=== PATIENT | female | born 1965 | race Caucasian/White ===

== ENCOUNTER 2022-12-27 15:39 | Emergency (ER) | payer OTHER, SELFPAY ==
[2022-12-27 15:47] VITALS: BP 150/82; PULSE 74; RESP 16; TEMP 37.3; O2SAT 100
--- NOTE | 2022-12-27 15:51 | ED.SKABFB ---
HPI - Skin/Abscess/Foreign Bdy General Chief complaint: Skin/Abscess/Foreign Body Stated complaint: Rash Time Seen by Provider: 12/27/22 15:50 Source: patient and RN notes reviewed Mode of arrival: ambulatory Limitations: no limitations History of Present Illness HPI narrative: 57-year-old female presents with concern for wheezing rash on her bilateral forearms. Reports she got the rash after she was pulling weeds. Reports she has been using discharge on the rash. She denies swollen lips, swollen tongue, trouble breathing. MD complaint: rash Related Data Home Medications Medication Instructions Recorded Confirmed aspirin 81 mg chewable tablet 81 mg PO DAILY 12/27/22 12/27/22 bisoprolol fumarate 5 mg tablet mg 12/27/22 ramipril 2.5 mg capsule mg 12/27/22 venlafaxine 75 mg capsule,extended mg PO 12/27/22 release 24 hr Allergies Allergy/AdvReac Type Severity Reaction Status Date / Time Cashew Allergy Unknown ORAL Uncoded 12/27/22 15:46 SWELLING Review of Systems Review of Systems: CONSTITUTIONAL: Denies malaise, chills, sweats, or fever. EYES: Denies redness, or discharge. ENT: Denies rhinorrhea, congestion, swollen lips, swollen tongue CARDIOVASCULAR: Denies chest pain, palpitations, or edema. RESPIRATORY: Denies cough or dyspnea. GASTROINTESTINAL: Denies abdominal pain, nausea, vomiting SKIN: Reports weeping itchy rash on bilateral forearms MUSCULOSKELETAL: Denies joint pain or myalgia. NEUROLOGIC: Denies headache. All systems reviewed & are unremarkable except as noted in HPI and below PMFSH Family History Family History (Updated 08/04/14 @ 12:58 by DOCTOR UNKNOWN) Other Cerebrovascular accident Social History Social History Alcohol intake: current Comments At time of signature, agree with nursing past medical, surgical, social and family history. There is no relevant family history pertinent to the presenting complaint Exam Narrative: GENERAL: Well-appearing, well-nourished, and in no acute distress. HEAD: Normocephalic, atraumatic. EYES: PERRLA, conjunctivae clear, and EOMI. ENT: Mucous membranes moist. Oropharynx without edema, erythema or lesions. NECK: Supple. No lymphadenopathy CHEST: Clear to auscultation. No respiratory distress. HEART: Regular rate and rhythm. SKIN: Warm, dry. Patches of erythematous papules and vesicles, some weeping noted to bilateral forearms NEURO: Alert and oriented x3. PSYCH: Normal mood and affect Course Course Emergency Course: Patient is aware of diagnosis, understands and agrees to treatment plan. Anticipatory guidance given. Patient agrees to follow-up as directed and is aware of reasons to seek care at the emergency department. Portions of this record may have been created with voice recognition software Level of Care: Express Care Visit Vital Signs Vital signs: Reviewed. MDM - Skin/Abscess/Foreign Bdy MDM Narrative Medical decision making narrative: Does not appear at this time to be erythema multiforme, bullous, SJS, TEN; no evidence at this time to suggest RMSF, endocarditis or Lyme disease; patient looks well, nontoxic and is tolerating oral intake; no neurologic signs or symptoms; no headache, photophobia or neck pain; afebrile; appropriate for initial outpatient treatment; discussed the importance of follow-up, patient agrees; question, viral exanthema, contact dermatitis, allergic dermatitis, eczema, urticaria, scabies. No soft palate or uvula edema, no tongue, lip edema or other mucosal involvement, no respiratory compromise, no stridor, no wheezing, no wheezing, no history of syncope, no hypotension, no nausea, vomiting, or diarrhea. Instructed patient to go to nearest ER immediately for any worsening symptoms including but not limited to: fever, spreading rash, pain, sore throat, headache, dizziness, chest pain, trouble breathing, or any symptoms concerning to the patient. Critical Care Time Critical Care Time
== END 2022-12-27 16:05 | disposition home or self-care (01) ==
PROVIDERS: Emergency Provider Nurse Practitioner; PCP Internal Medicine
DX: L25.9 Unspecified contact dermatitis, unspecified cause (principal); M19.90 Unspecified osteoarthritis, unspecified site; I25.2 Old myocardial infarction; Z79.82 Long term (current) use of aspirin
CPT/HCPCS: 99213; G0463

== ENCOUNTER 2023-06-16 18:46 | Emergency (ER) | payer OTHER, SELFPAY ==
--- NOTE | ~2023-06-16 | XR_ITS ---
Right ankle Technique: AP, oblique, and lateral views were obtained. Clinical History: Trauma Findings: There is an acute, oblique fracture of the medial malleolus at its base, minimally displace d.. Ankle mortise and other visualized joint spaces are preserved. Medial soft tissue swelling noted. Impression: Acute medial malleolus fracture, as detailed above. Medial soft tissue swelling. Reviewed, dictated and finalized at location . INTERN Impression: Acute medial malleolus fracture, as detailed above. Medial soft tissue swelling.
--- NOTE | ~2023-06-16 | XR_ITS ---
Right Knee Technique: AP, lateral, and sunrise views were obtained. Clinical History: Pain Findings: No fracture or dislocation is seen. Osseous alignment is anatomic. Joint spaces are preserv ed without degenerative or erosive change. There is subcutaneous soft tissue edema medially. No joint effusion is seen. Impression: No fracture or dislocation seen. Medial subcutaneous soft tissue edema. Reviewed, dictated and finalized at location . ICAL DOCUMENTATION MANAGER Impression: No fracture or dislocation seen. Medial subcutaneous soft tissue edema.
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
[2023-06-16 18:57] VITALS: BP 98/71; PULSE 126; RESP 16; TEMP 37.5; O2SAT 98
--- NOTE | 2023-06-16 20:03 | PC.NURSE ---
At 1940 pt became pale and diaphoretic while splint being placed to right leg. Cool cloth placed around neck. BP dropped to 82/46, HR 97, O2 sat 95%, temp. 98.9, RR 16. IV placed at this time and ambulance called for transport to [place].
== END 2023-06-16 19:48 | disposition short-term general hospital (02) ==
PROVIDERS: Emergency Provider Nurse Practitioner Family; PCP Internal Medicine
DX: S82.51XA Displaced fracture of medial malleolus of right tibia, initial encounter for closed fracture (principal); W17.89XA Other fall from one level to another, initial encounter; M25.561 Pain in right knee; I95.9 Hypotension, unspecified; R22.41 Localized swelling, mass and lump, right lower limb; Z79.82 Long term (current) use of aspirin; I25.2 Old myocardial infarction; M19.90 Unspecified osteoarthritis, unspecified site; F41.9 Anxiety disorder, unspecified; F32.A Depression, unspecified
CPT/HCPCS: 29515; 73564; 73610; 99215; G0463